=== PATIENT | female | born 1970 | race African-American/Black ===

== ENCOUNTER 2024-04-25 13:18 | Emergency (ER) | payer BC ==
[2024-04-25 13:42] VITALS: BP 118/76; PULSE 99; RESP 16; TEMP 98.7; BMI 28.5
[2024-04-25] MEDS: SODIUM CHLORIDE 1,000 ML IV STA (16:11)
[2024-04-25 16:18] LABS: BASO % 0.9 % (0-2.0); EOS % 3.6 % (0-4.5); HEMATOCRIT 40.7 % (32.4-45.2); HEMOGLOBIN 13.4 GM/dL (10.7-15.3); LYMPH % 37.5 % (8-40); MCH 26.1 pg (25.7-33.7); MEAN CELL VOLUME 79.1 fl (80-96); MEAN PLT VOLUME 9.8 fl (7.5-11.1); MONO % 9.8 % (3.8-10.2); NEUT % 48.2 % (42.8-82.8); PLATELET COUNT 200 10^3/uL (134-434); RBC 5.14 M/mm3 (3.60-5.2); RDW 14.2 % (11.6-15.6)
[2024-04-25 16:25] LABS: INR 0.95 (0.83-1.09); PROTHROMBIN TIME (PATIENT) 10.9 SEC (9.7-13.0)
[2024-04-25 16:42] LABS: CHLORIDE 108 mmol/L (98-107); SODIUM 136 mmol/L (136-145)
[2024-04-25 16:45] LABS: ALBUMIN 3.2 g/dl (3.4-5.0); BLOOD UREA NITROGEN 21.7 mg/dL (7-18); CALCIUM 9.2 mg/dL (8.5-10.1); CO2 26 mmol/L (21-32); GLUCOSE,RANDOM 96 mg/dL (74-106); MAGNESIUM 2.2 mg/dL (1.8-2.4)
[2024-04-25 16:49] LABS: CREATININE 0.9 mg/dL (0.55-1.3)
[2024-04-25 16:50] LABS: ALK PHOS 71 U/L (45-117); BILIRUBIN,TOTAL 0.2 mg/dL (0.2-1); TOT PROT 7.4 g/dl (6.4-8.2)
[2024-04-25 16:57] LABS: ANION GAP 2 mmol/L (4-13); POTASSIUM 7.7 mmol/L (3.5-5.1); SGOT/AST 80 U/L (15-37); SGPT/ALT 23 U/L (13-61)
[2024-04-25 20:17] LABS: CALCIUM 8.8 mg/dL (8.5-10.1); POTASSIUM 3.7 mmol/L (3.5-5.1)
[2024-04-25 20:18] LABS: BLOOD UREA NITROGEN 18.2 mg/dL (7-18)
[2024-04-25 20:21] LABS: CREATININE 0.8 mg/dL (0.55-1.3)
== END 2024-04-25 21:14 | disposition home or self-care (01) ==
LOC: JER 13:18
DX: R00.2 Palpitations (principal); I51.7 Cardiomegaly; R53.1 Weakness; Z20.822 Contact with and (suspected) exposure to COVID-19
CPT/HCPCS: 0241U-QW; 36415; 71046-TC-FY; 80048; 80053; 83735; 84484; 85025; 85610; 85730; 93005; 93010; 99285-25